=== PATIENT | female | born 1990 | race Caucasian/White ===

== ENCOUNTER → 2017-12-14 | Outpatient (CLI) | payer OTHER ==
--- NOTE | 2017-12-15 23:25 | EKG ---
Date Performed: 12/14/2017 Time Performed: 09:28:00 PTAGE: 27 years EKG: Sinus rhythm . Normal ECG NO PREVIOUS TRACING DOCTOR: Lanre Ascencio Interpretating Date/Time 12/15/2017 23:25:00
== END ==
LOC: HCAV 09:08
DX: F31.81 Bipolar II disorder (principal); F43.10 Post-traumatic stress disorder, unspecified; F41.8 Other specified anxiety disorders; F90.1 Attention-deficit hyperactivity disorder, predominantly hyperactive type
CPT/HCPCS: 93005